=== PATIENT | male | born 1955 | race Caucasian/White ===

== ENCOUNTER → 2017-04-14 | Outpatient (CLI) | payer BC | LOC: FIMAGING 19:35 | PROVIDERS: ATTEND Nurse Practitioner Adult Health | DX: M54.5 Low back pain (principal); M54.16 Radiculopathy, lumbar region ==

== ENCOUNTER 2018-11-15 11:26 | Inpatient (IN) | payer BC | END 2018-11-17 17:18 | disposition home or self-care (01) | LOC: F3N 14:53 ==